=== PATIENT | female | born 1945 ===

== ENCOUNTER 2024-05-22 18:59 | Emergency (ER) | payer OTHER ==
[~2024-05-22] VITALS: Ht 152.4 cm; Wt 61.7 kg
[2024-05-22] MEDS ORDERED: DIOVAN160 M1 PO (19:17)
[2024-05-22] MEDS ORDERED: AZOR 5-40 MG T1 EACH PO (19:18)
[2024-05-22] MEDS ORDERED: LEVOTHYROXINE75 MC1 PO (19:19)
[2024-05-22] MEDS ORDERED: hydrOXYzine PAMOATE 50 MG CAPSULE PO STA (20:10)
== END 2024-05-22 20:38 | disposition home or self-care (01) ==
LOC: ER 18:59
DX: I10 Essential (primary) hypertension (principal)